=== PATIENT | male | born 1980 | race Hispanic/Latino ===

== ENCOUNTER 2019-09-19 12:35 | Emergency (ER) | payer BC, OTHER ==
[~2019-09-19] VITALS: Ht 170.2 cm; Wt 127.0 kg
[~2019-09-19 12:35] MED LIST: ALBUTEROL SULF8.5 GM INH; KEFLEX500 MG PO; TYLENOL WITH C1 EACH PO
[2019-09-19] MEDS ORDERED: ONDANSETRON HCL INJ 2MG/ML 2ML 2 MG/ML VIAL IV STA (13:01)
[2019-09-19] MEDS ORDERED: MORPHINE SULFATE INJ 4 MG/ML INJ 1ML IV PRN ×2 (13:15→15:45)
[2019-09-19] MEDS ORDERED: SODIUM CHLORIDE 0.9% 1000ML 1,000 ML IV SCH ×2 (13:15→15:34)
--- NOTE | 2019-09-19 13:20 | NUR ---
[facility] CALLED FOR TRANSPORT 30MIN ETA
[2019-09-19] MEDS ORDERED: SODIUM CHLORIDE 0.9% 1000ML 1,000 ML ONE (13:26)
[2019-09-19] MEDS ORDERED: MORPHINE SULFATE INJ 4 MG/ML INJ 1ML ONE (13:26)
[2019-09-19] MEDS ORDERED: ONDANSETRON HCL INJ 2MG/ML 2ML 2 MG/ML VIAL ONE (13:26)
[2019-09-19] MEDS ORDERED: DIATRIZOATE MEGL/DIATRIZOA SOD 30 ML BTL PO ONE (13:32)
--- NOTE | 2019-09-19 13:54 | NUR ---
PT TO BE TRANSFERED TO PATIENTS ER FOR ADMISSION AND CT OF ABDOMEN, PT AND FAMILY AWARE OF POC, REPORT TO [facility], PT VOICES NO COMPLAINTS AT THIS TIME.
--- NOTE | 2019-09-19 15:25 | Diagnostic Imaging Report ---
EXAM: CT Abdomen and Pelvis WITH intravenous contrast INDICATION: Abdominal pain COMPARISON: None. TECHNIQUE: Abdomen and pelvis were scanned utilizing a multidetector helical scanner from the lung base to the pubic symphysis after administration of IV contrast. Coronal and sagittal reformations were obtained. Routine protocol was performed. Scan was performed during portal venous phase. IV CONTRAST: 100mL of Isovue 370 ORAL CONTRAST: Gastrografin RADIATION DOSE: Total DLP: 858.5 mGy*cm Dose modulation, iterative reconstruction, and/or weight based adjustment of the mA/kV was utilized to reduce the radiation dose to as low as reasonably achievable. FINDINGS: LOWER THORAX: Normal. HEPATOBILIARY: No focal liver lesions. No biliary ductal dilation. Unremarkable gallbladder. SPLEEN: No splenomegaly. PANCREAS: No focal masses or ductal dilatation. ADRENALS: No adrenal nodules. KIDNEYS/URETERS: No hydronephrosis, stones, or solid mass lesions. PELVIC ORGANS/BLADDER: Unremarkable. PERITONEUM / RETROPERITONEUM: No free air or fluid. LYMPH NODES: No lymphadenopathy. VESSELS: Unremarkable. GI TRACT: Sigmoid and descending colon diverticulosis without CT evidence of diverticulitis. No abnormal bowel thickening. No bowel obstruction. Normal appendix. Status post sleeve gastrectomy. BONES AND SOFT TISSUES: No acute osseous injury. No suspicious lytic or blastic lesions. Grade 1 anterolisthesis at L3-4. IMPRESSION: No acute findings in the abdomen or pelvis. Diverticulosis without CT evidence of diverticulitis. Signed by: Geovanna Munoz MD on 09/19/2019 3:21 PM
[2019-09-19] MEDS ORDERED: MORPHINE SULFATE 2 MG/ML SYR 1ML IV PRN (15:45)
[2019-09-19] MEDS ORDERED: ONDANSETRON HCL INJ 2MG/ML 2ML 2 MG/ML VIAL IV PRN (15:45)
[2019-09-19] MEDS ORDERED: IOPAMIDOL 370 MG/ML 200 ML INFUS..BTL INJ ONE (16:50)
[2019-09-19] MEDS ORDERED: SODIUM CHLORIDE 0.9% 50ML 50 ML ONE (16:50)
--- OUTSIDE RECORDS SUMMARY | 2019-09-23 12:51 | XMS REPORT | Encounter Summary ---
Author Author ELOISA Parish Halimat A Organization [facility] Address [address] [facility] ([address]) [place] [address] Phone Care Team Providers Care Candles Pourer Name Role Phone MD Benjy, Walter Unavailable Conditions or Problems Problem Name Problem Code Onset Date Status Entry Date Provider Comment Standard Description Annotate ABRASION, LEFT KNEE, INITIAL ENCOUNTER S80.212A (ICD-10-CM) Active Walter Burleson MD Abrasion, left knee, initial encounter DERMATITIS [id number] (SNOMED CT) Resolved Walter Burleson MD Eczema CELLULITIS 093923353 (SNOMED CT) Resolved Walter Burleson MD Cellulitis DEPRESSION 03640754 (SNOMED CT) Active Walter Burleson MD Depressive disorder Medications Medication Instructions Start Date Stop Date Generic Name NDC Provider PROAIR HFA AERS take 2 puffs by mouth BID/PRN asthma for 60 days ALBUTEROL SULFATE AERS [id number] Walter Burleson MD LISINOPRIL 10 MG TABS Take one tablet by mouth daily x 365 days LISINOPRIL 59651670773 Walter Burleson MD ACETAMINOPHEN 325 MG TABS Take 2 tablet by mouth twice daily x 15 days. ACETAMINOPHEN [id number] Walter Burleson MD Medications Administered No information available. Allergies, Adverse Reactions, Alerts Observed no known allergies at
--- OUTSIDE RECORDS SUMMARY | 2019-09-23 12:51 | XMS REPORT ---
[facility] Address Unknown Phone Unavailable Care Team Providers Care Commercial Carpet Installer Name Role Phone JENELLE BAINS Unavailable Unavailable Payers Payer Name Policy Type Policy Number Effective Date Expiration Date Problems This patient has no known problems. Allergies, Adverse Reactions, Alerts Allergy Name Allergy Type Status Severity Reaction(s) Onset Date Inactive Date Treating Clinician Comments No Known Allergies DA Active U 2019-05-06 00:00:00 Medications This patient has no known medications. Encounters Start Date/Time End Date/Time Encounter Type Admission Type Attending Clinicians Care Facility Care Department Encounter ID 2017-11-12 00:00:00 2018-04-20 00:00:00 Outpatient [facility] [id number] 2018-04-13 08:06:01 2018-04-13 08:06:01 [facility] [id number] Results Test Description Test Time Test Comments Text Results Atomic Results Result Comments CT ABDOMEN/PELVIS W 2019-09-19 15:17:00 [facility] [address] [place] [address] Patient Name: CUONG GARSIA MR #: [id number] : 1980 Age/Sex: 38/M Req #: [id number] Adm Physician: Ordered by: JENELLE BAINS DO Report #: [id number] Location: [facility] Room/Bed: Procedure: [id number] CT/CT ABDOMEN/PELVIS W Exam Date: 09/19/19 Exam Time: 1410 REPORT STATUS: Signed EXAM: CT Abdomen and Pelvis WITH intravenous contrast INDICATION: Abdominal pain COMPARISON: None. TECHNIQUE: Abdomen and pelvis were scanned utilizing a multidetector helical scanner from the lung base to the pubic symphysis after administration of IV contrast. Coronal and sagittal reformations were obtained. Routine protocol was performed. Scan was performed during portal venous phase. IV CONTRAST: 100mL of Isovue 370 ORAL CONTRAST: Gastrografin RADIATION DOSE: Total DLP: 858.5 mGy*cm Dose modulation, iterative reconstruction, and/or weight based adjustment of the mA/kV was utilized to reduce the radiation dose to as low as reasonably achievable. FINDINGS: LOWER THORAX: Normal. HEPATOBILIARY: No focal liver lesions. No biliary ductal dilation. Unremarkable gallbladder. SPLEEN: No splenomegaly. PANCREAS: No focal masses or ductal dilatation. ADRENALS: No adrenal nodules. KIDNEYS/URETERS: No hydronephrosis, stones, or solid mass lesions. PELVIC ORGANS/BLADDER: Unre markable. PERITONEUM / RETROPERITONEUM: No free air or fluid. LYMPH NODES: No lymphadenopathy. VESSELS: Unremarkable. GI TRACT: Sigmoid and descending colon diverticulosis without CT evidence of diverticulitis. No abnormal bowel thickening. No bowel obstruction. Normal appendix. Status post sleeve gastrectomy. BONES AND SOFT TISSUES: No acute osseous injury. No suspicious lytic or blastic lesions. Grade 1 anterolisthesis at L3-4. IMPRESSION: No acute findings in the abdomen or pelvis. Diverticulosis without CT evidence of diverticulitis. Signed by: Colleen Marcos MD on 09/19/2019 3:21 PM Dictated By: COLLEEN MARCOS MD 1521 Transcribed By: HARLEEN on 09/19/19 1521 COPY TO: JENELLE BAINS DO SURGICAL SPECIMENS 2019-05-11 14:43:00 RUN DATE: 05/11/19 Sangeetha ZELAYA *LIVE* PAGE 1 RUN TIME: 1443 Specimen Inquiry RUN USER: INTERFACE PATIENT: CUONG GARSIA JR LOC: [facility] U #: [id number] AGE/SX: 38/M ROOM: RE05/10/19[facility] DR: Micheal Castro MD : 82 BED: DIS: STATUS: [facility] TLOC: SPEC #: [id number] RECD: 05/10/19 STATUS: BECKY REAriana #: [id number] YAYA: 05/10/[address] [facility] [address]: Micheal Castro MD ENTERED: 05/10/19 SP TYPE: SURG OTHR DR: Sean Webber DO ORDERED: PATHGM4/2, PATH SPEC, H E STAIN/2 HISTOLOGY: TISSUE ID BLK PCS PK LEV / PROCEDURE DISPOSITION ____ ___ ___ ___ ___ ANTRUM BIOPSY A 1 3 1 GE JUNCTION B 1 3 1 TISSUES: A. ANTRUM BIOPSY - Gastric Antrum Bx B. GASTRO-ESOPHAGEAL JUNCTION BIOPSY - GE Junction Bx CLINICAL HISTORY GERD COMMENT The intestinal metaplasia seen in specimen (B) could be compatible with the diagnosis of Suero's esophagus in the proper clinical setting (i.e. if the intestinal metaplasia correlates with abnormal mucosa identified endoscopically within the tubular esophagus). Clinical and endoscopic correlation is recommended. FINAL DIAGNOSIS A-GASTRIC ANTRUM, BIOPSY: - Antral type gastric mucosa with minimal chronic inflammation and mild reactive epithelial changes, suggestive of reactive gastropathy/chemical gastritis. - Negative for H. pylori organisms. B-GE JUNCTION, BIOPSY: - Squamocolumnar junction mucosa with mild chronic inflammation, intestinal metaplasia and reactive epithelial changes. - Negative for dysplasia. - See comment. GROSS DESCRIPTION A-GASTRIC ANTRUM: A single piece of tissue which measures 2 mm. Entirely submitted in a single cassette. B-GE JUNCTION: A single piece of tissue which measures 2 mm. Entirely submitted in a single cassette. RAB/eb CONTINUED ON NEXT PAGE RUN DATE: 05/11/19 Sangeetha ZELAYA *LIVE* PAGE 2 RUN TIME: 1443 Specimen Inquiry RUN USER: INTERFACE SPEC #: [id number] PATIENT: CUONG GARSIA JR #[id number] (Continued) MICROSCOPIC DESCRIPTION Microscopic performed. Signed SIGNATURE ON EDILMA Bethany Corbett MD 05/11/19 1443 ------ END OF REPORT
--- OUTSIDE RECORDS SUMMARY | 2019-09-23 12:51 | XMS REPORT | Encounter Summary ---
Author Author ELOISA Ortiz, Claudia Organization [facility] Address [address] [facility] ([address]) [place] [address] Phone Care Team Providers Care Threshing Machine Operator Name Role Phone MD Benjy, Walter Unavailable Conditions or Problems Problem Name Problem Code Onset Date Status Entry Date Provider Comment Standard Description Annotate ABRASION, LEFT KNEE, INITIAL ENCOUNTER S80.212A (ICD-10-CM) Active Walter uBrleson MD Abrasion, left knee, initial encounter DERMATITIS 00173622 (SNOMED CT) Resolved Walter Burleson MD Eczema CELLULITIS 480782614 (SNOMED CT) Resolved Walter Burleson MD Cellulitis DEPRESSION 42972848 (SNOMED CT) Active Walter Burleson MD Depressive disorder Medications Medication Instructions Start Date Stop Date Generic Name [facility] Provider PROAIR HFA AERS take 2 puffs by mouth BID/PRN asthma for 60 days ALBUTEROL SULFATE AERS 46912238571 Walter Burleson MD LISINOPRIL 10 MG TABS Take one tablet by mouth daily x 365 days LISINOPRIL 87112165339 Walter Burleson MD ACETAMINOPHEN 325 MG TABS Take 2 tablet by mouth twice daily x 15 days. ACETAMINOPHEN 39864981690 Walter Burleson MD Medications Administered No information available. Allergies, Adverse Reactions, Alerts Observed no known allergies at
--- OUTSIDE RECORDS SUMMARY | 2019-09-23 12:51 | XMS REPORT | Encounter Summary ---
Author Author ELOISA Rodgers, [email or web address] Organization [facility] Address [address] [facility] ([address]) [place] [address] Phone Care Team Providers Care Ditch Digger Name Role Phone MD Benjy, Walter Unavailable Conditions or Problems Problem Name Problem Code Onset Date Status Entry Date Provider Comment Standard Description Annotate ABRASION, LEFT KNEE, INITIAL ENCOUNTER S80.212A (ICD-10-CM) Active Walter Burleson MD Abrasion, left knee, initial encounter DERMATITIS 40201316 (SNOMED CT) Resolved Walter Burleson MD Eczema CELLULITIS 145593778 (SNOMED CT) Resolved Walter Burleson MD Cellulitis DEPRESSION 77678501 (SNOMED CT) Active Walter Burleson MD Depressive disorder Medications Medication Instructions Start Date Stop Date Generic Name ND Provider PROAIR HFA AERS take 2 puffs by mouth BID/PRN asthma for 60 days ALBUTEROL SULFATE AERS 14532833124 Walter Burleson MD LISINOPRIL 10 MG TABS Take one tablet by mouth daily x 365 days LISINOPRIL 12301844722 Walter Burleson MD ACETAMINOPHEN 325 MG TABS Take 2 tablet by mouth twice daily x 15 days. ACETAMINOPHEN [id number] Walter Burleson MD Medications Administered No information available. Allergies, Adverse Reactions, Alerts Observed no known allergies at
--- OUTSIDE RECORDS SUMMARY | 2019-09-23 12:51 | XMS REPORT | Encounter Summary ---
Author Author ELOISA Mcmahan Dawn M Organization [facility] Address [address] [facility] ([address]) [place] [address] Phone Care Team Providers Care Breaker Operator Name Role Phone MD Benjy, Walter Unavailable Conditions or Problems Problem Name Problem Code Onset Date Status Entry Date Provider Comment Standard Description Annotate ABRASION, LEFT KNEE, INITIAL ENCOUNTER S80.212A (ICD-10-CM) Active Walter Burleson MD Abrasion, left knee, initial encounter DERMATITIS 42279228 (SNOMED CT) Resolved Walter Burleson MD Eczema CELLULITIS 474302453 (SNOMED CT) Resolved Walter Burleson MD Cellulitis DEPRESSION 21134717 (SNOMED CT) Active Walter Burleson MD Depressive disorder Medications Medication Instructions Start Date Stop Date Generic Name ND Provider PROAIR HFA AERS take 2 puffs by mouth BID/PRN asthma for 60 days ALBUTEROL SULFATE AERS 11811391582 Walter Burleson MD LISINOPRIL 10 MG TABS Take one tablet by mouth daily x 365 days LISINOPRIL 21814355712 Walter Burleson MD ACETAMINOPHEN 325 MG TABS Take 2 tablet by mouth twice daily x 15 days. ACETAMINOPHEN 24514715447 Walter Burleson MD Medications Administered No information available. Allergies, Adverse Reactions, Alerts Observed no known allergies at
== END 2019-09-19 16:30 | disposition home or self-care (01) ==
LOC: FSED 12:35
DX: R10.13 Epigastric pain (principal); R10.84 Generalized abdominal pain; R11.0 Nausea; E87.1 Hypo-osmolality and hyponatremia; E87.6 Hypokalemia; K52.9 Noninfective gastroenteritis and colitis, unspecified
CPT/HCPCS: 74177; 80048; 80076; 81003; 85025; 99283; J2270; J2405; J7030; Q9967

== ENCOUNTER → 2019-12-30 | Day surgery (SDC) | payer BC ==
[~2019-12-30] MED LIST changes: +FENTANYL CITRATE/PF 100MCG/2 ML INJ ONE; +GLYCOPYRROLATE INJ 0.2 MG/ML VIAL ONE; +HYDRALAZINE HCL 20 MG/ML VIAL ONE; +HYOSCYAMINE 0.125 MG TAB ONE; +KETAMINE HCL INJ 50 MG/ML 10 ML VIAL ONE; +LABETALOL HCL 5 MG/ML 20ML VIAL ONE; +METOCLOPRAMIDE HCL 10 MG/2ML VIAL ONE; +MIDAZOLAM HCL 2 MG/2 ML VIAL ONE; +Multi Vitamin PO; +PROMETHAZINE HCL (IM) 25 MG/ML VIAL ONE; +PROPOFOL IV EMULSION 10 MG/ML 50 ML VIAL ONE
[2019-12-30 14:30] VITALS: BP 153/88
[2019-12-30 15:04] LABS: WBC,FECAL (FECAL LACTOFERRIN) NEGATIVE (NEGATIVE)
--- NOTE | 2019-12-30 15:24 | Operative Report ---
DATE OF PROCEDURE: 12/30/2019 SURGEON: Martell Cassidy MD PROCEDURES: 1. Esophagogastroduodenoscopy with biopsies. 2. Colonoscopy with polypectomy and biopsies. INDICATIONS FOR EGD: Upper abdominal pain, nausea, heartburn. INDICATIONS FOR COLONOSCOPY: Lower abdominal pain, diarrhea, personal history of colon polyps. MEDICATIONS: The patient was done under MAC, please see anesthesiologist's note. PROCEDURE IN DETAIL: With the patient in left lateral decubitus position, a flexible fiberoptic Olympus gastroscope was introduced into the esophagus under direct visualization without any difficulty. There were some erosions noted in the distal esophagus without active bleeding. The scope was then advanced with ease into the stomach traversing a medium-sized hiatal hernia. Mucosa overlying the antrum and the body revealed some patchy erythema and [id number] edema and biopsies were obtained and sent to stain for H pylori. The patient is apparently status post gastric sleeve. Pylorus was intubated with ease and the scope was advanced all the way to the second portion of the duodenum. Biopsies were obtained from the proximal second portion and duodenal bulb to rule out sprue. The scope was then withdrawn back into the stomach and retroflexed and some postoperative changes were noted. The scope was then straightened out, it was subsequently withdrawn. The patient tolerated the procedure well. IMPRESSION: 1. Distal erosive esophagitis. 2. Moderate-sized hiatal hernia. 3. Gastritis, biopsied, biopsies sent to stain for Helicobacter pylori. 4. Status post gastric sleeve. 5. Rule out sprue. PLAN: Follow up histology. Initiate Protonix 40 mg one p.o. q.a.m. before meals and Carafate 1 g p.o. before meals t.i.d. and at bedtime. The patient was then turned around. After adequate lubrication of the anal canal, a flexible fiberoptic Olympus colonoscope was inserted into the rectum with ease and advanced all the way to the cecum. Mucosa overlying the cecum grossly appeared to be within normal limits. The ileocecal valve was intubated and the scope was advanced into the terminal ileum. Biopsies were obtained. The scope was then withdrawn back into the colon. It was then withdrawn slowly and some diverticular disease was noted in the ascending colon. One minute submucosal nodule was biopsied from the distal transverse colon. Diverticular disease was more prominent in the left colon. There were also mild patchy inflammatory changes noted in the left colon as well as the rectum, random biopsies were obtained. One polyp was removed per hot snare polypectomy from the proximal rectum. The scope was then retroflexed into the distal rectum and small internal hemorrhoids were noted, none of which was actively bleeding. The scope was then straightened out, it was subsequently withdrawn after securing an adequate stool specimen that was sent for the appropriate stool studies. The patient tolerated the procedure well. IMPRESSION: 1. Transverse colon, submucosal nodule, biopsied. 2. Diverticulosis. 3. Mild patchy left-sided colitis. 4. Rectal polyp removed per hot snare polypectomy. 5. Proctitis, mild. 6. Internal hemorrhoids, none actively bleeding. PLAN: Follow up histology. Follow up stool studies. Initiate Bentyl 10 mg one p.o. t.i.d. The patient might benefit from a followup colonoscopy in 3-5 years. Martell Cassidy MD [facility] /[id number] cc: Sean Webber DO
[2019-12-31 11:57] LABS: C DIFFICILE TOXIN A&B AMP PROB NEGATIVE (NEGATIVE)
== END | disposition home or self-care (01) ==
LOC: OR 10:20
PROVIDERS: ATTEND Internal Medicine Gastroenterology
DX: K29.70 Gastritis, unspecified, without bleeding (principal); K63.5 Polyp of colon; K62.1 Rectal polyp; K51.50 Left sided colitis without complications; K29.80 Duodenitis without bleeding; K22.10 Ulcer of esophagus without bleeding; K44.9 Diaphragmatic hernia without obstruction or gangrene; Z98.84 Bariatric surgery status; K57.30 Diverticulosis of large intestine without perforation or abscess without bleeding; K62.89 Other specified diseases of anus and rectum; K64.8 Other hemorrhoids; R63.4 Abnormal weight loss; G47.33 Obstructive sleep apnea (adult) (pediatric); J45.909 Unspecified asthma, uncomplicated; F17.210 Nicotine dependence, cigarettes, uncomplicated
CPT/HCPCS: 43235; 43239; 45378; 45380; 45385; 83630; 83993; 87045; 87177; 87328; 87493; J0360; J2250; J2550; J2765; J3010